=== PATIENT | female | born 1985 | race Caucasian/White ===

== ENCOUNTER 2017-01-04 13:55 | Outpatient (CLI) | payer MEDICAID | END 2017-01-04 13:56 | disposition home or self-care (01) | DX: Z31.69 Encounter for other general counseling and advice on procreation (principal) ==

== ENCOUNTER 2017-01-05 08:41 | Outpatient (CLI) | payer MEDICAID | END 2017-01-05 08:42 | disposition home or self-care (01) | DX: G47.10 Hypersomnia, unspecified (principal); F32.9 Major depressive disorder, single episode, unspecified; E03.9 Hypothyroidism, unspecified ==

== ENCOUNTER 2017-02-03 14:34 | Outpatient (CLI) | payer MEDICAID | END 2017-02-03 14:35 | disposition home or self-care (01) | DX: E03.9 Hypothyroidism, unspecified (principal) ==

== ENCOUNTER 2017-02-09 09:48 | Emergency (ER) | payer MEDICAID ==
[2017-02-09] MEDS ORDERED: IBUPROFEN 800 MG TABLET PO STA (10:02)
[2017-02-09] MEDS ORDERED: IBUPROFEN 800 MG TABLET PO ONE (10:04)
== END 2017-02-09 11:28 | disposition home or self-care (01) ==
DX: J06.9 Acute upper respiratory infection, unspecified (principal); B97.89 Other viral agents as the cause of diseases classified elsewhere; J45.909 Unspecified asthma, uncomplicated; I10 Essential (primary) hypertension; E11.9 Type 2 diabetes mellitus without complications; Z87.891 Personal history of nicotine dependence
CPT/HCPCS: 87275; 87276; 99283; A9270

== ENCOUNTER 2017-02-22 15:05 | Outpatient (CLI) | payer MEDICAID | END 2017-02-22 15:06 | disposition home or self-care (01) | DX: J20.9 Acute bronchitis, unspecified (principal) ==

== ENCOUNTER 2017-03-07 11:30 | Outpatient (CLI) | payer MEDICAID | END 2017-03-07 11:31 | disposition home or self-care (01) | DX: M79.645 Pain in left finger(s) (principal) ==

== ENCOUNTER 2017-03-15 08:32 | Day surgery (SDC) | payer MEDICAID ==
[2017-03-15] MEDS ORDERED: LACTATED RINGERS 1,000 ML IV ONE (09:27)
[2017-03-15] MEDS ORDERED: MIDAZOLAM 2 MG/2 ML VIAL IVP ONE (09:54)
[2017-03-15] MEDS ORDERED: fentaNYL 250 MCG/5 ML VIAL IVP ONE (09:54)
== END 2017-03-15 08:33 | disposition home or self-care (01) ==
PROC: 0DJ08ZZ Inspection of Upper Intestinal Tract, Via Natural or Artificial Opening Endoscopic (ICD-10-PCS; principal; 2017-03-15 09:30)
DX: K21.9 Gastro-esophageal reflux disease without esophagitis (principal); E11.9 Type 2 diabetes mellitus without complications; J45.909 Unspecified asthma, uncomplicated; K22.10 Ulcer of esophagus without bleeding
CPT/HCPCS: 43235; 81025; J3010; J7120

== ENCOUNTER 2017-03-30 09:33 | Outpatient (CLI) | payer MEDICAID | END 2017-03-30 09:34 | disposition home or self-care (01) | DX: E11.9 Type 2 diabetes mellitus without complications (principal); E78.5 Hyperlipidemia, unspecified ==

== ENCOUNTER 2017-04-17 14:29 | Emergency (ER) | payer MEDICAID | END 2017-04-17 14:59 | disposition home or self-care (01) | DX: M54.2 Cervicalgia (principal); I10 Essential (primary) hypertension; E11.9 Type 2 diabetes mellitus without complications; M19.90 Unspecified osteoarthritis, unspecified site; M79.7 Fibromyalgia; Z87.891 Personal history of nicotine dependence ==

== ENCOUNTER 2018-01-09 19:06 | Emergency (ER) | payer MEDICAID ==
[2018-01-09] MEDS ORDERED: HYDROcod/ACETAM 5/325 MG TABLET PO STA (20:49)
[2018-01-09] MEDS ORDERED: DEXAMETHASONE 10 MG/ML VIAL PO STA (20:49)
[2018-01-09] MEDS ORDERED: cefUROXime axetil 250 MG TABLET PO STA (20:50)
--- NOTE | 2018-01-09 20:53 | ED Physician Documentation ---
PD HPI HEENT - Stated complaint Stated Complaint: EAR PX - Chief complaint Chief Complaint: Heent - History obtained from History obtained from: Patient, Friend - History of Present Illness Timing - onset: How many weeks ago (3) Timing - duration: Weeks (3) Timing - details: Gradual onset, Still present, Waxing and waning Location: Left ear Improves: Nothing Associated symptoms: Congestion, Cough Similar symptoms before: Diagnosis (OM and eustacian tube dysfunction) Recently seen: Emergency Dept - Additional information Additional information: 32 year-old female is been having some trouble with some pain in her left ear for the past 2 weeks she has had a cough with this and has a lot of stuff draining down the back of her throat. She has coughed up some phlegm, she has not had a fever. She has had this happen to her previously with otitis media. She has been seen in the in the emergency department in [place] and diagnosed with eustachian tube dysfunction and placed on a decongestant and ibuprofen. She has not had any improvement in her symptoms she is in tears tonight with pain in her left ear. 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 Review of Systems Constitutional: denies: Fever Eyes: denies: Decreased vision Ears: reports: Ear pain. denies: Loss of hearing, Drainage/discharge Nose: reports: Congestion Throat: denies: Sore throat Cardiac: denies: Chest pain / pressure, Palpitations Respiratory: reports: Cough. 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: Ovarian cysts : Incontinence, Chronic bladder infection, Frequency, Other HEENT: None Psych: Depression, Anxiety, Bipolar disorder Musculoskeletal: Osteoarthritis, Fibromyalgia, Fatigue, Chronic back pain Derm: None - Past Surgical History Past Surgical History: Yes General: EGD Ortho: ACL reconstruction, Other - Present Medications Home Medications: Ambulatory Orders Medication Instructions Recorded Confirmed Mirtazapine 15 mg PO DAILY 04/17/17 01/09/18 Ibuprofen 400 mg PO DAILY 01/09/18 01/09/18 Venlafaxine ER [Effexor ER] 75 mg PO DAILY 01/09/18 01/09/18 cefUROXime axetil [Ceftin] 500 mg PO Q12H #40 tablet 01/09/18 metFORMIN [Glucophage] 500 mg PO BIDWM 01/09/18 01/09/18 - Allergies Allergies/Adverse Reactions: Allergies Allergy/AdvReac Type Severity Reaction Status Date / Time adhesive tape Allergy Rash Verified 01/09/18 19:10 amoxicillin [Amoxicillin] Allergy Hives Verified 01/09/18 19:10 doxycycline Allergy Hives Verified 01/09/18 19:10 methylprednisolone acetate * Allergy Hives Verified 01/09/18 19:10 [From Depo-Medrol] oxycodone HCl * Allergy Itching Verified 01/09/18 19:10 [From Percocet] dark chocolate Allergy Hives Uncoded 01/09/18 19:10 - Social History Does the pt smoke?: No Smoking Status: Never smoker Does the pt drink ETOH?: Yes ETOH Use: Liquor Does the pt have substance abuse?: Yes Substance Use and Type: Marijuana - Immunizations Immunizations are current?: Yes - POLST Patient has POLST: No PD ED PE NORMAL - Vitals Vital signs reviewed: Yes (normal ) - General General: Alert and oriented X 3, No acute distress, Well developed/nourished - HEENT HEENT: Atraumatic, PERRL, EOMI, Pharynx benign, Other (The right TM is entirely normal left TM has a flushed appearance without specific area of erythema or distortion. There are multiple broken carious teeth throughout the mouth both posterior molars are broken. 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 She has had this happen to her previously and she thinks she did respond to treatment at that time. Tonight she is in persistent pain and comes to the emergency department in tears. On examination she does have carious teeth she has some TMJ by history and findings on exam are minimal. Nevertheless I am instituting empiric therapy with dexamethasone and Ceftin. I have asked the patient to follow-up with her dentist regarding her teeth. Departure - Departure Disposition: 01 Home, Self Care Clinical Impression: Otitis media Condition: Stable Instructions: ED Otitis Media Acute Adult Follow-Up: MOHIT KENNEDY DO [Primary Care Provider] - Prescriptions: cefUROXime axetil [Ceftin] 500 mg PO Q12H #40 tablet
[2018-01-09 21:14] VITALS: BP 124/75
== END 2018-01-09 21:14 | disposition home or self-care (01) ==
LOC: ED 19:06
DX: H66.92 Otitis media, unspecified, left ear (principal); I10 Essential (primary) hypertension; J45.909 Unspecified asthma, uncomplicated; E11.9 Type 2 diabetes mellitus without complications; Z79.84 Long term (current) use of oral hypoglycemic drugs; K21.9 Gastro-esophageal reflux disease without esophagitis; M19.90 Unspecified osteoarthritis, unspecified site; M79.7 Fibromyalgia
CPT/HCPCS: 99283; A9270